=== PATIENT | female | born 1985 | race African-American/Black ===

== ENCOUNTER 2017-12-04 10:06 | Emergency (ER) | payer OTHER ==
[~2017-12-04] VITALS: Ht 167.6 cm; Wt 77.1 kg
[~2017-12-04 10:06] MED LIST: FLEXERIL PO; NOHOMEMEDICATIONS
[2017-12-04 10:49] LABS: URINE BILIRUBIN NEGATIVE (Negative); URINE BLOOD NEGATIVE (Negative); URINE CLARITY CLEAR; URINE COLOR YELLOW; URINE GLUCOSE-RANDOM* NEGATIVE (Negative); URINE KETONES NEGATIVE (Negative); URINE LEUKOCYTES-REFLEX NEGATIVE (Negative); URINE NITRITE-REFLEX NEGATIVE (Negative); URINE PROTEIN (DIPSTICK) NEGATIVE (Negative); URINE SPECIFIC GRAVITY 1.025 (1.005-1.035); URINE UROBILINOGEN 0.2 E.U./dl (0.2-1.0)
[2017-12-04] MEDS ORDERED: MOBIC7.5 MG PO (11:06)
[2017-12-04] MEDS ORDERED: NORFLEX100 MG PO (11:06)
[2017-12-04 12:34] VITALS: BP 112/74
== END 2017-12-04 12:35 | disposition home or self-care (01) ==
LOC: ER 10:06
PROVIDERS: Nurse Practitioner Family
DX: S39.012A Strain of muscle, fascia and tendon of lower back, initial encounter (principal); X58.XXXA Exposure to other specified factors, initial encounter; Y93.89 Activity, other specified; Y92.89 Other specified places as the place of occurrence of the external cause; Y99.8 Other external cause status